=== PATIENT | male | born 1990 | race Caucasian/White ===

== ENCOUNTER 2021-04-09 14:04 | Inpatient (IN) ==
[2021-04-10] MEDS: Sennosides 8.6 MG TABLET PO SCH (21:21)
[2021-04-10] MEDS: Gabapentin 100 MG CAPSULE PO SCH (21:23)
[2021-04-10] MEDS: Acetaminophen 325 MG TABLET PO SCH (21:23)
[2021-04-11] MEDS: Acetaminophen 325 MG TABLET PO SCH ×2 (02:37→08:35)
[2021-04-11] MEDS: Gabapentin 100 MG CAPSULE PO SCH ×3 (04:43→21:07)
[2021-04-11] MEDS: *HR* Enoxaparin 40 MG/0.4 ML SYRINGE SQ SCH (08:36)
[2021-04-11] MEDS: Sennosides 8.6 MG TABLET PO SCH ×2 (08:38→21:01)
[2021-04-11] MEDS: Acetaminophen 325 MG TABLET PO PRN (17:44)
[2021-04-12] MEDS: *HR* OxyCODONE Immed Rel 5 MG TABLET PO PRN ×3 (04:10→21:03)
[2021-04-12] MEDS: Gabapentin 100 MG CAPSULE PO SCH ×3 (05:46→21:03)
[2021-04-12] MEDS: Sennosides 8.6 MG TABLET PO SCH ×2 (09:39→21:00)
[2021-04-12] MEDS: *HR* Enoxaparin 40 MG/0.4 ML SYRINGE SQ SCH (09:39)
[2021-04-13 05:02] LABS: Hemoglobin 11.5 g/dL (12.9-16.9); Mean Corpuscular HGB Conc 31.9 g/dL (31.6-35.5); Mean Corpuscular Hemoglobin 26.7 pg (28.0-33.3); Mean Corpuscular Volume 83.7 fL (83.0-100.0); Mean Platelet Volume 9.1 fL (9.4-12.4); Platelet Count 410 K/mcL (140-400); Red Cell Distribution Width 13.3 % (11.5-14.5)
[2021-04-13] MEDS: *HR* OxyCODONE Immed Rel 5 MG TABLET PO PRN ×3 (05:03→14:44)
[2021-04-13] MEDS: Gabapentin 100 MG CAPSULE PO SCH ×3 (05:03→20:49)
[2021-04-13 05:18] LABS: Alanine Aminotransferase 92 Units/L (7-52); Albumin 3.7 g/dL (3.5-5.7); Albumin/Globulin Ratio 1.3 (1.1-2.2); Alkaline Phosphatase 74 Units/L (34-104); Aspartate Amino Transferase 41 Units/L (13-39); BUN/Creatinine Ratio 22 (6-26); Bilirubin,Total 0.7 mg/dL (0.3-1.0); Blood Urea Nitrogen 20 mg/dL (6-20); Calcium 9.1 mg/dL (8.6-10.3); Carbon Dioxide 24 mEq/L (23-29); Chloride 105 mEq/L (98-107); Globulin 2.9 g/dL (2.4-3.5); Glucose 96 mg/dL (70-105); Osmolality,Calculated 288 (280-300); Potassium 3.9 mEq/L (3.5-5.1); Sodium 138 mEq/L (136-145); Total Protein 6.6 g/dL (6.4-8.9); eGFR For African Americans > 60 (> 60); eGFR For Non-African Americans > 60 (> 60)
[2021-04-13] MEDS: *HR* Enoxaparin 40 MG/0.4 ML SYRINGE SQ SCH (08:54)
[2021-04-13] MEDS: Sennosides 8.6 MG TABLET PO SCH ×2 (08:57→20:54)
[2021-04-13] MEDS: Acetaminophen 325 MG TABLET PO PRN (20:53)
[2021-04-14] MEDS: Gabapentin 100 MG CAPSULE PO SCH ×3 (05:08→21:27)
[2021-04-14] MEDS: *HR* OxyCODONE Immed Rel 5 MG TABLET PO PRN ×2 (08:03→16:11)
[2021-04-14] MEDS: *HR* Enoxaparin 40 MG/0.4 ML SYRINGE SQ SCH (08:04)
[2021-04-14] MEDS: Sennosides 8.6 MG TABLET PO SCH ×2 (08:04→21:27)
[2021-04-15] MEDS: Gabapentin 100 MG CAPSULE PO SCH ×2 (05:59→13:55)
[2021-04-15] MEDS: *HR* OxyCODONE Immed Rel 5 MG TABLET PO PRN ×2 (06:23→11:34)
[2021-04-15] MEDS: *HR* Enoxaparin 40 MG/0.4 ML SYRINGE SQ SCH (08:17)
[2021-04-15] MEDS: Sennosides 8.6 MG TABLET PO SCH (08:18)
[2021-04-15] MEDS ORDERED: Isovue-370 500 ML BOTTLE IVP ONE (13:26)
[2021-04-15] MEDS ORDERED: Ketorolac 15 MG/ML VIAL IVP ONE (13:27)
[2021-04-15 13:59] LABS: Basophils % 0.5 %; Eosinophils # 0.2 K/mcL (0.0-0.6); Eosinophils % 1.9 %; Hematocrit 34.8 % (37.5-50.1); Hemoglobin 11.1 g/dL (12.9-16.9); Immature Granulocytes % 0.6 % (0-4); Lymphocytes # 1.9 K/mcL (0.6-4.6); Lymphocytes % 22.2 %; Mean Corpuscular HGB Conc 31.9 g/dL (31.6-35.5); Mean Corpuscular Hemoglobin 26.8 pg (28.0-33.3); Mean Corpuscular Volume 84.1 fL (83.0-100.0); Monocytes # 0.5 K/mcL (0.0-1.3); Monocytes % 5.9 %; Neutrophils # 5.7 K/mcL (1.6-8.9); Platelet Count 462 K/mcL (140-400); Red Blood Count 4.14 M/mcL (4.19-5.50); Red Cell Distribution Width 13.6 % (11.5-14.5); Segmented Neutrophils % 68.9 %; White Blood Count 8.3 K/mcL (4.3-11.1)
[2021-04-15 14:16] LABS: BUN/Creatinine Ratio 21 (6-26); Blood Urea Nitrogen 18 mg/dL (6-20); Calcium 8.9 mg/dL (8.6-10.3); Carbon Dioxide 24 mEq/L (23-29); Chloride 107 mEq/L (98-107); Glucose 95 mg/dL (70-105); Osmolality,Calculated 288 (280-300); Potassium 3.7 mEq/L (3.5-5.1); Sodium 138 mEq/L (136-145); eGFR For African Americans > 60 (> 60); eGFR For Non-African Americans > 60 (> 60)
[2021-04-15] MEDS ORDERED: *HR* Heparin 5,000 UNIT/ML VIAL IVP ONE (14:57)
[2021-04-15] MEDS ORDERED: *HR* Heparin 5,000 UNIT/ML VIAL IVP PRN ×2 (14:57)
[2021-04-15] MEDS ORDERED: Perflutren Lipid Microsphere 1.3 ML in 0.9 % Sodium Chloride 8.7 ML IVP PRN (14:58)
[2021-04-15] MEDS ORDERED: Heparin 25,000UNIT/250ML 1/2NS 25,000 UNIT/250 ML IV.SOLN IVC SCH (15:00)
[2021-04-15 15:56] LABS: INR 1.1
[2021-04-15 16:03] LABS: Heparin anti-factor XA UFH 0.1 IU/mL (0.30-0.70)
[2021-04-15 16:56] LABS: Activated Partial Thrombo Time 34.2 Seconds (26.0-36.0)
[2021-04-15 19:12] VITALS: BP 128/69
== END 2021-04-15 19:25 | disposition short-term general hospital (02) | DRG 559 ==
LOC: INPGRE 04-10 19:28
PROVIDERS: ADMIT Family Medicine; ATTEND Family Medicine